=== PATIENT | female | born 1985 | race Caucasian/White ===

== ENCOUNTER 2018-03-14 11:26 | Emergency (ER) | payer SELFPAY ==
[~2018-03-14] VITALS: Ht 154.9 cm; Wt 59.0 kg
[2018-03-14 12:05] LABS: BILIRUBIN,URINE NEG (NEG); CLARITY,URINE HAZY; COLOR,URINE YELLOW; GLUCOSE,URINE NEG (NEG); UROBILINOGEN,URINE 0.2 mg/dL (0.2 mg/dL)
[2018-03-14 12:06] LABS: NITRITE,URINE NEG (NEG)
[2018-03-14 12:11] LABS: BACTERIA,URINE FEW /HPF (0-FEW); RBC,URINE OCC /HPF (0-2); SQUAMOUS EPITHELIAL CELL,UR FEW /LPF
[2018-03-14] MEDS ORDERED: MORPHINE SULFATE 4 MG/ML DISP.SYRIN. IV ONE (12:45)
[2018-03-14] MEDS ORDERED: ONDANSETRON PF 4 MG/2 ML VIAL. IV ONE (12:45)
[2018-03-14] MEDS ORDERED: KETOROLAC 15 MG/ML VIAL. IV ONE (12:45)
[2018-03-14 12:46] LABS: BASO # 0.1 x10^3/uL (0.0-0.2); BASO % 1 % (0-3); EOS # 0.1 x10^3/uL (0.0-0.7); EOS % 1 % (0-3); HEMATOCRIT 40.1 % (36.0-47.0); HEMOGLOBIN 14.1 g/dL (12.0-15.5); LYMPH # 2.1 x10^3/uL (1.0-4.8); LYMPH % 27 % (24-48); MEAN CORPUSCULAR HEMOGLOBIN 30 pg (25-35); MEAN CORPUSCULAR HGB CONC 35 g/dL (31-37); MEAN CORPUSCULAR VOLUME 86 fL (79-100); MONO # 0.6 x10^3/uL (0.0-1.1); MONO % 7 % (0-9); NEUT % 64 % (31-73); PLATELET COUNT 229 x10^3/uL (140-400); RED BLOOD COUNT 4.67 x10^6/uL (3.50-5.40); RED CELL DISTRIBUTION WIDTH 13.1 % (11.5-14.5); WHITE BLOOD COUNT 7.8 x10^3/uL (4.0-11.0)
[2018-03-14 12:59] LABS: ALBUMIN 3.7 g/dL (3.4-5.0); ALBUMIN/GLOBULIN RATIO 1.1 (1.0-1.7); CALCIUM 8.5 mg/dL (8.5-10.1); CREATININE 0.7 mg/dL (0.6-1.0); GFR 96.4; POTASSIUM 4.2 mmol/L (3.5-5.1); TOTAL BILIRUBIN 0.2 mg/dL (0.2-1.0); TOTAL PROTEIN 7.2 g/dL (6.4-8.2)
--- NOTE | 2018-03-14 13:05 | RAD ---
Examination: CT ABDOMEN PELVIS WO CONTRAST History: right flank pain x 3 days, hx of stones, lmp 2 weeks ago Comparison/Correlation: None Findings: Axial images of the abdomen and pelvis were obtained without contrast. Sagittal and coronal reformatted images were provided. Visualized lung bases are clear. Unenhanced liver, spleen, pancreas, and adrenal glands are normal. No radiopaque collecting system calculi. Right extrarenal pelvis is present. Suture material about the cecum posteriorly is present. No appendix identified. Moderate quantity of stool in the colon is present. No extrarenal gas or bowel obstruction. Gallbladder fossa is unremarkable. Small amount of pelvic free fluid is present. Right adnexal follicles are physiologic in appearance. Bony structures are unremarkable. Impression: No radiopaque collecting system calculi or evidence of obstruction. Minimal pelvic free fluid is present, likely physiologic. Right adnexal follicles are present in appearance. Electronically signed by: Richard Leal MD (03/14/2018 1:03 PM) [facility]
[2018-03-14 13:15] VITALS: BP 105/59
[2018-03-14] MEDS ORDERED: DIAZ5TAB PO (13:25)
--- NOTE | 2018-03-14 15:38 | PHYS DOC ---
Past History Past Medical History: Anxiety, Depression, Kidney Stones Past Surgical History: Appendectomy Additional Smoking Information: 1/2 PACK Alcohol Use: None Drug Use: None Adult General Chief Complaint Chief Complaint: FLANK PAIN HPI HPI Patient is a 30-year-old female presenting with right low back pain for the last 3 days gradually getting worse and worse dull radius to the buttock and into the groin area. Somewhat a prior kidney stone she thinks. No abdominal pain really she says she cannot reproduce the pain with palpation no dysuria no fever associated have some sweats last night. She says the pain is extremely severe and they can refer to sleep. Has tried [id number] agents with minimal relief Review of Systems Review of Systems Constitutional: Denies fever or chills [] Eyes: Denies change in visual acuity, redness, or eye pain [] HENT: Denies nasal congestion or sore throat [] Respiratory: Denies cough or shortness of breath [] Cardiovascular: No additional information not addressed in HPI [] GI: [] : Denies dysuria or hematuria [] Musculoskeletal: Integument: Denies rash or skin lesions [] All other systems were reviewed and found to be within normal limits, except as documented in this note. Current Medications Current Medications Current Medications Medications (Trade) Dose Ordered Sig/Laly Start Time Stop Time Status Last Admin Dose Admin Ketorolac Tromethamine (Toradol 15mg Vial) 15 mg 1X ONCE 03/14/18 12:45 03/14/18 12:46 DC 03/14/18 12:51 15 MG Morphine Sulfate (Morphine 4mg Syringe) 4 mg 1X ONCE 03/14/18 12:45 03/14/18 12:46 DC 03/14/18 12:49 4 MG Ondansetron HCl (Zofran) 4 mg 1X ONCE 03/14/18 12:45 03/14/18 12:46 DC 03/14/18 12:46 4 MG Allergies Allergies Allergies Coded Allergies Type Severity Reaction Last Updated Verified erythromycin base Allergy Unknown 03/14/18 Yes escitalopram Allergy Unknown 03/14/18 Yes hydroxyzine Allergy Unknown 03/14/18 Yes Physical Exam Physical Exam Constitutional: Well developed, well nourished, no acute distress, non-toxic appearance. [] HENT: Normocephalic, atraumatic, bilateral external ears normal, oropharynx moist, no oral exudates, nose normal. [] Eyes: PERRLA, EOMI, conjunctiva normal, no discharge. [] Pulmonary: Normal respiratory effort no increased work of breathing no obvious chest wall trauma Abdomen: Bowel sounds normal, soft, no tenderness, no masses, no pulsatile masses. [] Skin: Warm, dry, no erythema, no rash. [] Back: No midline tenderness positive CVA tenderness is noted on the right Extremities: No tenderness, no cyanosis, no clubbing, ROM intact, no edema. [] Neurologic: Alert and oriented X 3, normal motor function, normal sensory function, no focal deficits noted. [] Psychologic: Affect normal, judgement normal, mood normal. [] Current Patient Data Vital Signs Vital Signs Date Time Temp Pulse Resp B/P (MAP) Pulse Ox O2 Delivery O2 Flow Rate FiO2 03/14/18 13:15 82 20 105/59 (74) 98 Room Air 03/14/18 11:35 97.9 Lab Results Laboratory Tests Test 03/14/18 11:53 03/14/18 11:56 03/14/18 12:35 Urine Collection Type Unknown Urine Color Yellow Urine Clarity Hazy Urine pH 6.5 Urine Specific [place] 1.025 Urine Protein Neg (NEG-TRACE) Urine Glucose (UA) Neg mg/dL (NEG) Urine Ketones (Stick) Neg mg/dL (NEG) Urine Blood Neg (NEG) Urine Nitrite Neg (NEG) Urine Bilirubin Neg (NEG) Urine Urobilinogen Dipstick 0.2 mg/dL (0.2 mg/dL) Urine Leukocyte Esterase Neg (NEG) Urine RBC Occ /HPF (0-2) Urine WBC 1-4 /HPF (0-4) Urine Squamous Epithelial Cells Few /LPF Urine Bacteria Few /HPF (0-FEW) Urine Mucus Mod /LPF POC Urine HCG, Qualitative hcg negative (Negative) White Blood Count 7.8 x10^3/uL (4.0-11.0) Red Blood Count 4.67 x10^6/uL (3.50-5.40) Hemoglobin 14.1 g/dL (12.0-15.5) Hematocrit 40.1 % (36.0-47.0) Mean Corpuscular Volume 86 fL (79-100) Mean Corpuscular Hemoglobin 30 pg (25-35) Mean Corpuscular Hemoglobin Concent 35 g/dL (31-37) Red Cell Distribution Width 13.1 % (11.5-14.5) Platelet Count 229 x10^3/uL (140-400) Neutrophils (%) (Auto) 64 % (31-73) Lymphocytes (%) (Auto) 27 % (24-48) Monocytes (%) (Auto) 7 % (0-9) Eosinophils (%) (Auto) 1 % (0-3) Basophils (%) (Auto) 1 % (0-3) Neutrophils # (Auto) 5.0 x10^3uL (1.8-7.7) Lymphocytes # (Auto) 2.1 x10^3/uL (1.0-4.8) Monocytes # (Auto) 0.6 x10^3/uL (0.0-1.1) Eosinophils # (Auto) 0.1 x10^3/uL (0.0-0.7) Basophils # (Auto) 0.1 x10^3/uL (0.0-0.2) Sodium Level 137 mmol/L (136-145) Potassium Level 4.2 mmol/L (3.5-5.1) Chloride Level 105 mmol/L (98-107) Carbon Dioxide Level 24 mmol/L (21-32) Anion Gap 8 (6-14) Blood Urea Nitrogen 13 mg/dL (7-20) Creatinine 0.7 mg/dL (0.6-1.0) Estimated GFR (Cockcroft-Gault) 96.4 BUN/Creatinine Ratio 19 (6-20) Glucose Level 84 mg/dL (70-99) Calcium Level 8.5 mg/dL (8.5-10.1) Total Bilirubin 0.2 mg/dL (0.2-1.0) Aspartate Amino Transferase (AST) 16 U/L (15-37) Alanine Aminotransferase (ALT) 19 U/L (14-59) Alkaline Phosphatase 57 U/L (46-116) Total Protein 7.2 g/dL (6.4-8.2) Albumin 3.7 g/dL (3.4-5.0) Albumin/Globulin Ratio 1.1 (1.0-1.7) EKG EKG [] Radiology/Procedures Radiology/Procedures [] Impressions: Impression: No radiopaque collecting system calculi or evidence of obstruction. Minimal pelvic free fluid is present, likely physiologic. Right adnexal follicles are present in appearance. Electronically signed by: Richard Leal MD (03/14/2018 1:03 PM) [facility] Course & Med Decision Making Course & Med Decision Making Pertinent Labs and Imaging studies reviewed. (See chart for details) []Low back pain history of kidney stone she thinks it feels the same she appears uncomfortable workup was evaluated and noted above. Essentially workup is negative I suspect muscular back pain. Patient was reassured given some Valium she doesn't dorsal history of anxiety as well as this will help for muscle spasms and possibly for anxiety to help her sleep. Return precautions were discussed and she voiced understanding of instructions Tiff Disclaimer Tiff Disclaimer This electronic medical record was generated, in whole or in part, using a voice recognition dictation system. Departure Departure: Impression: Primary Impression: Back pain Disposition: 01 HOME, SELF-CARE Condition: STABLE Patient Instructions: Back Pain, Adult, [id number] Scripts Diazepam (VALIUM) 5 Mg Tablet 5 MG PO TID PRN for PAIN, #20 TAB Prov: NORBERTO VOGT MD 03/14/18 NORBERTO VOGT MD Mar 14, 2018 15:38
== END 2018-03-14 13:36 | disposition home or self-care (01) ==
LOC: ER 11:26
DX: M54.5 Low back pain (principal); F17.210 Nicotine dependence, cigarettes, uncomplicated; Z87.442 Personal history of urinary calculi; Z88.1 Allergy status to other antibiotic agents; Z88.8 Allergy status to other drugs, medicaments and biological substances
CPT/HCPCS: 36415; 74176; 80053; 81001; 81025; 85025; 96374; 96375; 99285; J1885; J2270; J2405